=== PATIENT | male | born 1985 | race African-American/Black ===

== ENCOUNTER 2023-11-12 21:32 | Emergency (ER) | payer MEDICAID ==
[~2023-11-12] VITALS: Ht 172.7 cm; Wt 64.0 kg
[2023-11-12 21:35] VITALS: TEMP 98.3; O2SAT 100
[2023-11-12] MEDS ORDERED: HYDR453.3 TP (23:48)
[2023-11-12 23:57] VITALS: BP 130/80; PULSE 70; RESP 15
[2023-11-13] MEDS ORDERED: TOPUD PO (05:43)
== END 2023-11-13 01:53 | disposition home or self-care (01) ==
LOC: ER 21:32
DX: L40.9 Psoriasis, unspecified (principal); F12.10 Cannabis abuse, uncomplicated
CPT/HCPCS: 99282

== ENCOUNTER 2023-11-13 04:12 | Emergency (ER) | payer MEDICAID ==
[~2023-11-13] VITALS: Ht 172.7 cm; Wt 63.0 kg
[~2023-11-13 04:12] MED LIST: HYDR453.3 TP
[2023-11-13 04:38] VITALS: O2SAT 98
[2023-11-13] MEDS ORDERED: TOPUD PO (05:43)
[2023-11-13 06:17] VITALS: TEMP 98.2
[2023-11-13] MEDS: ACETAMINOPHEN 325MG TABLET PO ONE (06:17)
[2023-11-13 07:10] VITALS: BP 122/74; PULSE 62; RESP 16
== END 2023-11-13 07:37 | disposition home or self-care (01) ==
LOC: ER 04:12
DX: M79.18 Myalgia, other site (principal); F12.90 Cannabis use, unspecified, uncomplicated
CPT/HCPCS: 99282

== ENCOUNTER 2023-12-27 16:46 | Emergency (ER) | payer MEDICAID ==
[~2023-12-27] VITALS: Ht 170.2 cm; Wt 88.0 kg
[~2023-12-27 16:46] MED LIST changes: +TOPUD PO
[2023-12-27 16:51] VITALS: BP 92/68; PULSE 55; RESP 18; O2SAT 100
== END 2023-12-27 19:40 | disposition left against medical advice (07) ==
LOC: ER 16:46
DX: R06.02 Shortness of breath (principal); F12.90 Cannabis use, unspecified, uncomplicated; F32.A Depression, unspecified
CPT/HCPCS: 71045; 99283